=== PATIENT | female | born 1985 | race Hispanic/Latino ===

== ENCOUNTER 2017-01-22 02:47 | Emergency (ER) | payer SELFPAY ==
[~2017-01-22] VITALS: Ht 137.2 cm; Wt 81.8 kg
[~2017-01-22 02:47] MED LIST: AUGMENTIN875 MG PO; Motrin PO; PERCOCET 5/31 TABLET PO; PRENATAL TABLE1 EAC3 PO; ZOFRAN4 MG PO
[2017-01-22 03:54] LABS: HEMATOCRIT 38.3 % (36.0-46.0); MCH 28.8 PG (29.0-34.0); MCHC 33.9 G/DL (30.0-36.0); MCV 84.9 FL (83-99); MEAN PLAT.VOLUME 9.8 uM^3 (9.5-12.4); PLATELET COUNT 270 K/uL (156-360); RBC DIS.WIDTH-CV 12.5 % (11.8-14.6); RBC DIS.WIDTH-SD 38.5 % (39-53); RED BLOOD COUNT 4.51 M/uL (3.80-5.20); WHITE BLOOD COUNT 20.6 K/uL (4.1-10.2)
[2017-01-22 04:02] LABS: CHLORIDE 104 mEq/L (99-109); POTASSIUM 3.8 mEq/L (3.7-5.4); SODIUM 135 mEq/L (136-147)
[2017-01-22 04:05] LABS: GLUCOSE 111 mg/dL (70-99)
[2017-01-22 04:06] LABS: ANION GAP 8 MEQ/L (2-14)
[2017-01-22 04:07] LABS: TOTAL BILIRUBIN 0.3 mg/dL (0.0-1.0)
[2017-01-22 04:08] LABS: ALKALINE PHOSPHATASE 70 IU/L (3-129); GFR ESTIMATE (CALCULATED) > 59 mL/min/
[2017-01-22 04:09] LABS: UREA NITROGEN (BUN) 10 mg/dL (9-23)
[2017-01-22 04:12] LABS: LIPASE 15 U/L (1.0-51.0)
[2017-01-22 04:18] LABS: QUANTITATIVE HCG < 4.0 MIU/ML
[2017-01-22 05:15] LABS: ADD MIUA? YES; BILIRUBIN NEGATIVE; BLOOD SMALL; COLOR YELLOW ((YELLOW)); GLUCOSE (STRIP) NEGATIVE; KETONES NEGATIVE; LEUKOCYTES MODERATE; NITRITE NEGATIVE; PROTEIN (STRIP) NEGATIVE; UROBILINOGEN 0.2 MG/DL (0.2-1.0)
[2017-01-22 05:35] LABS: BACTERIA NONE SEEN /HPF; EPITHELIAL CELLS 4+ /HPF; MUCUS NONE SEEN /LPF; RED BLOOD CELLS 0-5 /HPF (0-5); UCUL ADDED? YES; WHITE BLOOD CELLS 15-20 /HPF (0-5)
[2017-01-22] MEDS ORDERED: ZOFRAN ODT4 MG PO (05:53)
[2017-01-22] MEDS ORDERED: PERCOCET 5/31 TABLET PO (05:53)
[2017-01-22] MEDS ORDERED: CIPRO500 MG PO (05:53)
[2017-01-22 06:10] VITALS: BP 126/71
== END 2017-01-22 06:17 | disposition home or self-care (01) ==
LOC: EME 02:47 → EXP 02:47
PROVIDERS: Physician Assistant
DX: K80.20 Calculus of gallbladder without cholecystitis without obstruction (principal); N39.0 Urinary tract infection, site not specified; Z88.0 Allergy status to penicillin
CPT/HCPCS: 74177; 76705; 80053; 81003; 83690; 84702; 85027; 87086; 99281; 99285; J7030